=== PATIENT | male | born 1980 | race Caucasian/White ===

== ENCOUNTER 2019-01-26 17:56 | Emergency (ER) | payer MEDICAID ==
[~2019-01-26] VITALS: Ht 182.9 cm; Wt 68.0 kg
[~2019-01-26 17:56] MED LIST: ASPI325 PO; CLIN150 PO; CRUTCH2 USE; Cleocin HCl300 MG PO; Coumadin5 MG PO; Crutch1 EACH MISC; GABA300 PO; GABA600 PO; Gabapentin600 MG PO; HYDACE5 PO; IBUP600 PO; MULVITA; NAPR500 PO; Naprosyn500 MG PO; Neurontin 300300 MG PO; Norco 5-325 Ta1 EACH PO; TRAM50; TRAM50 PO; Ultram50 MG PO; WARF5; WARF5 PO; WARF7.5 PO; XARELTO20 MG PO; XERALTO PO
[2019-01-26] MEDS ORDERED: Neurontin 300300 MG PO (19:05)
== END 2019-01-26 19:14 | disposition home or self-care (01) ==
LOC: ER 17:56
DX: Z76.0 Encounter for issue of repeat prescription (principal); Z88.0 Allergy status to penicillin; Z88.5 Allergy status to narcotic agent; Z79.899 Other long term (current) drug therapy

== ENCOUNTER 2019-05-23 10:27 | Emergency (ER) | payer OTHER, SELFPAY ==
[~2019-05-23] VITALS: Ht 182.9 cm; Wt 68.0 kg
[2019-05-23] MEDS ORDERED: Neurontin 300300 MG PO (11:13)
== END 2019-05-23 11:19 | disposition home or self-care (01) ==
LOC: ER 10:27
DX: G62.9 Polyneuropathy, unspecified (principal); Z76.0 Encounter for issue of repeat prescription; Z86.718 Personal history of other venous thrombosis and embolism; Z88.0 Allergy status to penicillin; Z88.1 Allergy status to other antibiotic agents; Z88.6 Allergy status to analgesic agent
CPT/HCPCS: 99281

== ENCOUNTER 2019-06-29 13:19 | Emergency (ER) | payer OTHER ==
[~2019-06-29] VITALS: Ht 182.9 cm; Wt 65.8 kg
[2019-06-29 14:05] LABS: BASOPHILS ABSOLUTE AUTO 0.04 K/mm3 (0.00-0.23); BASOPHILS PERCENT AUTO 1 % (0-2); EOSINOPHILS ABSOLUTE AUTO 0.18 K/mm3 (0.00-0.68); EOSINOPHILS PERCENT AUTO 3 % (0-6); Hematocrit 45.6 % (37.0-53.0); Hemoglobin 14.7 g/dL (13.5-17.5); IMMATURE GRAN ABSOLUTE AUTO 0.01 K/mm3 (0.00-0.10); IMMATURE GRAN PERCENT AUTO 0 % (0-1); LYMPHOCYTES ABSOLUTE AUTO 1.79 K/mm3 (0.84-5.20); LYMPHOCYTES PERCENT AUTO 33 % (21-46); MONOCYTES ABSOLUTE AUTO 0.48 K/mm3 (0.16-1.47); MONOCYTES PERCENT AUTO 9 % (4-13); Mean Corpuscular HGB 30.7 pg (26.0-34.0); Mean Corpuscular HGB Conc 32.2 g/dL (31.5-36.5); Mean Corpuscular Volume 95 fL (80-100); Mean Platelet Volume 10.4 fL (9.1-12.4); NEUTROPHILS ABSOLUTE AUTO 2.99 K/mm3 (1.96-9.15); NEUTROPHILS PERCENT AUTO 55 % (41-73); Platelet Count 224 K/mm3 (150-400); RDW Coefficient Variation 12.9 % (11.7-14.2); Red Blood Cell Count 4.79 M/mm3 (4.30-5.90); White Blood Cell Count 5.49 K/mm3 (4.00-11.30)
[2019-06-29 14:27] LABS: Alanine Aminotransfer (ALT/SGP 26 U/L (12-78); Albumin, Blood 3.9 g/dL (3.4-5.0); Alk Phos 86 U/L (50-136); Anion Gap 4 mmol/L (6-16); Aspartate Aminotrans (AST/SGOT 19 U/L (12-37); Bilirubin, Total 0.5 mg/dL (0.1-1.0); Blood Urea Nitrogen 11 mg/dL (8-24); Bun/Creatinine Ratio 16.6 (12.0-20.0); CO2, Blood 31 mmol/L (21-32); Calcium, Blood 8.4 mg/dL (8.5-10.1); Chloride, Blood 106 mmol/L (98-108); Creatinine, Blood 0.66 mg/dL (0.60-1.20); Globulin, Blood 3.8 g/dL (2.2-4.0); Glomerular Filtration Rate >60 (60-); Glucose, Blood 93 mg/dL (70-99); Potassium, Blood 4.2 mmol/L (3.5-5.5); Sodium, Blood 141 mmol/L (136-145); Total Protein, Blood 7.7 g/dL (6.4-8.2); Troponin I <0.015 ng/mL (0.000-0.040)
[2019-06-29 16:06] LABS: International Normalized Ratio 0.97; Prothrombin Time Results 10.3 Sec (9.7-11.5)
== END 2019-06-29 16:53 | disposition home or self-care (01) ==
LOC: ER 13:19
PROVIDERS: Physician Assistant
DX: M94.0 Chondrocostal junction syndrome [Tietze] (principal); Z88.0 Allergy status to penicillin; Z88.5 Allergy status to narcotic agent; Z79.899 Other long term (current) drug therapy
CPT/HCPCS: 36415; 71046; 71260; 80053; 84484; 85025; 85379; 85610; 93005; 93010; 99284-25; Q9967

== ENCOUNTER 2020-05-15 16:54 | Emergency (ER) | payer OTHER, BC ==
[~2020-05-15] VITALS: Ht 182.9 cm; Wt 65.8 kg
[2020-05-15] MEDS ORDERED: GABA300 PO (17:17)
== END 2020-05-15 18:48 | disposition home or self-care (01) ==
LOC: ER 16:54
DX: S29.012A Strain of muscle and tendon of back wall of thorax, initial encounter (principal); M54.12 Radiculopathy, cervical region; Z88.0 Allergy status to penicillin; Z88.5 Allergy status to narcotic agent; Z79.899 Other long term (current) drug therapy; V49.9XXA Car occupant (driver) (passenger) injured in unspecified traffic accident, initial encounter
CPT/HCPCS: 72040; 72070; 99283-25

== ENCOUNTER 2020-05-20 09:57 | Emergency (ER) | payer OTHER, BC ==
[~2020-05-20] VITALS: Ht 182.9 cm; Wt 65.8 kg
== END 2020-05-20 12:22 | disposition home or self-care (01) ==
LOC: ER 09:57
DX: M54.2 Cervicalgia (principal); Z88.0 Allergy status to penicillin; Z88.1 Allergy status to other antibiotic agents; Z88.5 Allergy status to narcotic agent; G62.9 Polyneuropathy, unspecified; Z86.718 Personal history of other venous thrombosis and embolism
CPT/HCPCS: 72125; 99284-25

== ENCOUNTER → 2020-06-27 | Outpatient (CLI) | payer BC | LOC: LAB EV 13:10 → LAB SHORT 13:10 | DX: R80.9 Proteinuria, unspecified (principal) | CPT/HCPCS: 87077; 87086; 87186 ==

== ENCOUNTER 2021-03-06 12:07 | Emergency (ER) | payer BC ==
[~2021-03-06] VITALS: Ht 182.9 cm; Wt 70.3 kg
[2021-03-06] MEDS ORDERED: HYDR1TAB94 PO (12:38)
[2021-03-06] MEDS ORDERED: KETO10 PO (12:38)
== END 2021-03-06 12:48 | disposition home or self-care (01) ==
LOC: ER 12:07
DX: M51.16 Intervertebral disc disorders with radiculopathy, lumbar region (principal); Z88.0 Allergy status to penicillin; Z88.5 Allergy status to narcotic agent; Z79.899 Other long term (current) drug therapy
CPT/HCPCS: 99283

== ENCOUNTER 2021-06-23 09:48 | Emergency (ER) | payer BC ==
[~2021-06-23] VITALS: Ht 182.9 cm; Wt 70.3 kg
[~2021-06-23 09:48] MED LIST changes: +HYDR1TAB94 PO; +KETO10 PO
[2021-06-23] MEDS ORDERED: KETO10 PO (10:20)
[2021-06-23] MEDS ORDERED: Flexeril5 MG PO (10:20)
== END 2021-06-23 10:27 | disposition home or self-care (01) ==
LOC: ER 09:48
DX: M54.5 Low back pain (principal); G89.29 Other chronic pain; Z79.899 Other long term (current) drug therapy
CPT/HCPCS: 99282

== ENCOUNTER 2022-07-30 13:17 | Emergency (ER) | payer BC ==
[~2022-07-30] VITALS: Ht 182.9 cm; Wt 72.6 kg
[~2022-07-30 13:17] MED LIST changes: +Flexeril5 MG PO
== END 2022-07-30 14:30 | disposition left against medical advice (07) ==
LOC: ER 13:17
DX: M54.50 Low back pain, unspecified (principal); G89.29 Other chronic pain; Z53.21 Procedure and treatment not carried out due to patient leaving prior to being seen by health care provider; Z98.1 Arthrodesis status
CPT/HCPCS: 99281

== ENCOUNTER 2022-09-09 00:06 | Emergency (ER) | payer SELFPAY ==
[~2022-09-09] VITALS: Ht 182.9 cm; Wt 70.8 kg
[2022-09-09] MEDS ORDERED: GABA300 PO (01:39)
== END 2022-09-09 02:06 | disposition home or self-care (01) ==
LOC: ER 00:06
DX: R11.2 Nausea with vomiting, unspecified (principal); F15.23 Other stimulant dependence with withdrawal
CPT/HCPCS: 99284; A9270

== ENCOUNTER 2023-03-31 19:22 | Emergency (ER) | payer SELFPAY ==
[~2023-03-31] VITALS: Ht 182.9 cm; Wt 70.3 kg
[2023-03-31 19:35] VITALS: BP 133/81
[2023-03-31] MEDS ORDERED: Neurontin 300300 MG PO (19:39)
== END 2023-03-31 19:52 | disposition home or self-care (01) ==
LOC: ER 19:22
DX: Z76.0 Encounter for issue of repeat prescription (principal); Z79.899 Other long term (current) drug therapy
CPT/HCPCS: 99281; A9270

== ENCOUNTER 2023-04-16 19:54 | Emergency (ER) | payer SELFPAY ==
[~2023-04-16] VITALS: Ht 182.9 cm; Wt 70.3 kg
[2023-04-16 20:24] VITALS: BP 138/86
== END 2023-04-16 20:29 | disposition home or self-care (01) ==
LOC: ER 19:54
DX: M54.50 Low back pain, unspecified (principal); G89.29 Other chronic pain; Z79.899 Other long term (current) drug therapy
CPT/HCPCS: 99282